=== PATIENT | male | born 1950 | race Caucasian/White ===

== ENCOUNTER 2023-08-25 12:16 | Outpatient (CLI) | payer MEDICARE, OTHER | END 2023-08-25 12:17 | disposition home or self-care (01) | LOC: LAB.N 12:16 | PROVIDERS: ATTEND Urology | DX: R97.20 Elevated prostate specific antigen [PSA] (principal) | CPT/HCPCS: 36415; 84153 ==

== ENCOUNTER 2023-09-21 11:18 | Day surgery (SDC) | payer MEDICARE, OTHER ==
[2023-09-21] MEDS: LACTATED RINGERS 1,000 ML IV ONE (11:34)
--- NOTE | 2023-09-21 12:12 | ANESTHESIA ---
Pre-Anesthesia VS, & Labs - Diagnosis elevated PSA - Procedure TRUS prostate biopsy Vital Signs: Temp Pulse Resp BP Pulse Ox O2 Flow Rate 36.2 C L 71 16 147/89 H 100 09/21/23 11:34 09/21/23 11:34 09/21/23 11:34 09/21/23 11:34 09/21/23 11:34 Height: 5 ft 10 in Weight (kg): 114 kg Body Mass Index: 36.0 BMI Classification: Obese - NPO >8 hours Home Medications and Allergies Home Medications: Ambulatory Orders Losartan Potassium 100 mg PO DAILY 09/15/23 Tamsulosin [Flomax] 0.4 mg PO DAILY 09/15/23 hydroCHLOROthiazide [Hydrodiuril] 12.5 mg PO DAILY 09/15/23 Losartan Potassium 100 mg PO DAILY 09/15/23 Tamsulosin [Flomax] 0.4 mg PO DAILY 09/15/23 hydroCHLOROthiazide [Hydrodiuril] 12.5 mg PO DAILY 09/15/23 Allergies/Adverse Reactions: Allergies Allergy/AdvReac Type Severity Reaction Status Date / Time No Known Drug Allergies Allergy Verified 09/21/23 11:43 Anes History & Medical History - Anesthetic History Anesthesia Complications: reports: No previous complications - Medical History Cardiovascular: reports: Hypertension Pulmonary: reports: None Gastrointestinal: reports: None Urinary: reports: Benign prostate hypertrophy Musculoskeletal: reports: None Endocrine/Autoimmune: reports: None Skin: reports: None Smoking Status: Never smoker - Surgical History General: reports: Cholecystectomy, Hiatal hernia repair, Colonoscopy, Other Exam General: Alert, Oriented x3, Cooperative Dental: WNL Mouth Opening: Greater than 4 Fingerbreadths Neck Mobility: Normal Mallampati classification: II Thyromental Distance: greater than 6 cm Respiratory: Lungs clear Cardiovascular: Regular rate, Normal S1, Normal S2 Plan Anesthesia Type: Total IV Consent for Procedure(s) Verified and Reviewed: Yes Code Status: Attempt Resuscitation ASA classification: 2-Mild systemic disease Is this case an emergency?: No
[2023-09-21] MEDS ORDERED: MIDAZOLAM 2 MG/2 ML VIAL ONE (12:20)
[2023-09-21] MEDS ORDERED: PROPOFOL 500 MG/50 ML 500 MG/50 ML VIAL ONE (12:21)
[2023-09-21] MEDS ORDERED: fentaNYL 100 MCG/2 ML VIAL ONE (12:21)
[2023-09-21] MEDS ORDERED: LIDOCAINE-MPF 1% 30 ML VIAL ONE (12:30)
[2023-09-21] MEDS: LIDOCAINE 1% 50 ML MDV SUBQ ONE (12:50)
[2023-09-21] MEDS ORDERED: HYDROcod/ACETAM 5/325 MG TABLET PO PRN (12:57)
--- NOTE | 2023-09-21 13:00 | Discharge Plan ---
Discharge Plan Problem Reviewed?: Yes Disposition: Home, Self Care Condition: Good Diet: Regular Activity Restrictions: No Restrictions Shower Restrictions: No Driving Restrictions: No Instruction Topics: Biopsy Ultrasound Transrectal Additional Instructions or Follow Up instructions: You have an appointment with Dr. Stevens on October 06 at 11 AM, please arrive 15 minutes early No Smoking: If you smoke, Please STOP! Call for help. Follow-up with: Anali Su MD [Primary Care Provider] -
--- NOTE | 2023-09-21 13:03 | OPERATIVE REPORT ---
Operative Report - General Procedure Date: 09/21/23 Planned Procedure: Transrectal ultrasound-guided prostate biopsy Pre-Op Diagnosis: Elevated PSA Procedure Performed: Transrectal ultrasound-guided prostate biopsy Post Op Diagnosis: Elevated PSA - Procedure Note Primary Surgeon: Rodney Anesthesia Provider: SVEN Lam Anesthesia Technique: Moderate sedation Pathology: Routine prostate biopsy samples Indications: Elevated PSA, PI-RADS 4 lesion in left posterior lateral mid gland peripheral zone Findings: Routine prostate biopsy, large prostate measured 108 cc Complications: None - Other Other Information/Narrative: After informed consent was obtained the patient was brought to the OR and laid in the supine position. The patient was then anesthetized per anesthesia protocols and placed in the left lower cubitus position with left side down. A timeout was performed reconfirming the patient, procedure and laterality. A transrectal ultrasound-guided probe was placed per rectum and his prostate was visualized. 5 cc 1% lidocaine was placed at the lateral aspect of the prostate bilaterally. The prostate volume was measured at 108cc. Using 18-gauge biopsy needle we obtained samples of the prostate from the right and left side, the lateral and medial aspects of the base, mid and apex. These were sent for analysis separately. We sent 1 extra sample from the left lateral mid prostate to the corresponding areas seen as a PI-RADS 4 lesion on MRI. There were a total of 13 cores taken, placed in 12 sample containers The probe was slowly removed and no bleeding was identified. The patient tolerated procedure well and was brought to the PACU without further incident. He will follow-up in a few weeks time for pathology discussion
[2023-09-21] MEDS: LACTATED RINGERS 600 ML IV ONE (13:06)
[2023-09-21 13:24] VITALS: BP 138/88; O2SAT 95
== END 2023-09-21 11:19 | disposition home or self-care (01) ==
LOC: SDS 11:18
PROVIDERS: ATTEND Urology
PROC: 0VB07ZX Excision of Prostate, Via Natural or Artificial Opening, Diagnostic (ICD-10-PCS; principal; 2023-09-21 12:45)
DX: N41.1 Chronic prostatitis (principal); E66.9 Obesity, unspecified; Z68.36 Body mass index [BMI] 36.0-36.9, adult; N40.1 Benign prostatic hyperplasia with lower urinary tract symptoms; N13.8 Other obstructive and reflux uropathy; I10 Essential (primary) hypertension
CPT/HCPCS: 55700; 76942; J7120